=== PATIENT | male | born 1995 | race Caucasian/White ===

== ENCOUNTER → 2019-11-02 09:18 | Outpatient (BNVA) | payer MEDICARE, MEDICAID, SELFPAY | PROVIDERS: Family Provider Nurse Practitioner; PCP Nurse Practitioner; Visit Provider Nurse Practitioner | DX: Z79.899 Other long term (current) drug therapy (principal) | CPT/HCPCS: 80164 ==

== ENCOUNTER → 2020-04-18 15:20 | Outpatient (BNVA) | payer MEDICARE, MEDICAID, SELFPAY | PROVIDERS: Family Provider Nurse Practitioner; PCP Nurse Practitioner; Visit Provider Nurse Practitioner | DX: F43.10 Post-traumatic stress disorder, unspecified (principal) | CPT/HCPCS: 80053; 80164; 85025 ==

== ENCOUNTER → 2020-05-31 15:30 | Outpatient (BNVA) | payer MEDICARE, MEDICAID, SELFPAY | PROVIDERS: Family Provider Nurse Practitioner; PCP Nurse Practitioner; Visit Provider Psychiatry & Neurology Psychiatry | DX: Z51.81 Encounter for therapeutic drug level monitoring (principal); Z79.899 Other long term (current) drug therapy | CPT/HCPCS: 80164 ==

== ENCOUNTER → 2020-09-01 15:30 | Outpatient (BNVA) | payer MEDICARE, SELFPAY | PROVIDERS: Family Provider Nurse Practitioner; PCP Nurse Practitioner; Visit Provider Nurse Practitioner Family | DX: J30.1 Allergic rhinitis due to pollen (principal); Z00.00 Encounter for general adult medical examination without abnormal findings; Z76.0 Encounter for issue of repeat prescription | CPT/HCPCS: 80053; 81000; 85025 ==

== ENCOUNTER 2021-03-14 14:29 | Emergency (ER) | payer MEDICARE, MEDICAID, SELFPAY ==
[2021-03-14] VITALS (8 sets, daily range): BP systolic 112–145; BP diastolic 83–102; PULSE 78–120; RESP 16–22; TEMP 36.4; O2SAT 100; BMI 21.7
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
--- NOTE | 2021-03-14 14:47 | ECG_ITS ---
[facility] Test Date: 2021-03-14 Pat Name: Cullen Devlin Department: Room: Gender: Male Clinic Manager: : 1995 Requested By: Emmanuel Ding Order Number: [id number] Allison MD: Carol Delarosa M.D. Measurements Intervals Chapman Rate: 100 P: 64 VA: 151 QRS: 58 QRSD: 103 T: 39 QT: 343 QTc: 443 Interpretive Statements SINUS TACHYCARDIA POSSIBLE LEFT ATRIAL ENLARGEMENT [-0.1mV P-WAVE IN V1/V2] POSSIBLE RIGHT VENTRICULAR CONDUCTION DELAY [RSR (QR) IN V1/V2] ABNORMAL RHYTHM ECG No previous ECG available for comparison Electronically Signed On 03-15-2021 23:21:04 CDT by Carol Delarosa M.D. [id number]
[2021-03-14 15:03] LABS: ABG PCO2 27.5 mmHg (35-45); ABG PH Result 7.54 (7.35-7.45); Arterial Blood Gas Hematocrit 53.6 % (42-52); Base Excess ABG 2.4 mmol/L (-2.0-2.0); Blood Gas Allen Test Pos; Blood Gas Operator Identificat CAK; Blood Gas Sample Site Radial, right; Blood Gas Sample Type Arterial; HCO3 ABG 23.4 mmol/L (22-26); Oxygen Device NRB
[2021-03-14 15:05] LABS: Basophils % 0.4 %; Eosinophils % 0.2 %; Hematocrit 50.2 % (42.0-52.0); Hemoglobin 17.7 g/dL (11.7-16.6); Lymphocytes # 1.5 10^3/uL (0.8-4.8); Lymphocytes % 18.2 %; Mean Corpuscular HGB Conc 35.3 g/dL (30.0-36.0); Mean Corpuscular Hemoglobin 30.3 pg (28.0-34.0); Mean Corpuscular Volume 85.8 fl (80-94); Mean Platelet Volume 10.5 fL (7.4-10.4); Monocytes # 0.4 10^3/uL (0.2-0.9); Monocytes % 5.3 %; Neutrophils # 6.22 10^3/uL (1.8-7.7); Neutrophils % 75.7 %; Nucleated Red Blood Cells % 0 %; Platelet Count 164 10^3/cmm (130-400); Red Blood Count 5.85 10^6/uL (4.1-5.3); Red Cell Distribution Width 11.1 % (12.1-15.1); White Blood Count 8.2 10^3/uL (4.0-10.0)
[2021-03-14] MEDS: sodium chlor 0.9% + KCl 20 mEq 20 MEQ/1,000 ML BAG 125 MEQ IV (15:08)
[2021-03-14] MEDS: ketorolac 30 mg/mL INJ IVP (15:11)
[2021-03-14] MEDS: tetanus-dipt-pertussis 0.5 mL SDV IM (15:12)
[2021-03-14] MEDS: morphine 4 mg/mL SDV 1 mL IVP (15:20)
[2021-03-14] MEDS: succinylcholine 20 mg/mL SDV 10mL IVP (15:24)
[2021-03-14] MEDS: ondansetron 2 mg/ML SDV 2 mL 4 MG IVP (15:25)
[2021-03-14] MEDS: propofol 1,000 MG/100 ML INJ 17.42 MG IV (15:25)
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
[2021-03-14 15:40] LABS: Alanine Aminotransferase 12 U/L (0-41); Albumin Level 5.1 g/dL (3.5-5.2); Alkaline Phosphatase 79 IU/L (40-130); Anion Gap 19.3 (5-19); Aspartate Amino Transferase 17 U/L (0-40); Blood Urea Nitrogen 13 mg/dL (6-20); Calcium 10.6 mg/dL (8.5-10.5); Carbon Dioxide 21 mmol/L (22-29); Chloride 106 mmol/L (98-107); Creatine Phosphokinase 128 U/L (39-308); Globulin 2.4 g/dL (1.3-4.6); Glomerular Filtration Rate 80.9 mL/min (90-130); Glucose 100 mg/dL (65-115); Osmolality Calculated 294 mOsm/kg (285-295); Potassium 4.3 mmol/L (3.5-5.1); Sodium 142 mmol/L (136-145); Total Bilirubin 0.6 mg/dL (0.15-1.2); Total Protein 7.5 g/dL (6.6-8.7)
[2021-03-14 16:30] LABS: Add Urine Microscopic? YES; Bilirubin Urine Neg (Negative); Blood Urine Neg (Negative); Glucose Urine UA Norm (Normal); Ketones Urine Negative (Negative); Leukocyte Esterase Urine Negative (Negative); Nitrate Urine Negative (Negative); Protein Urine Trace (Negative); Urine Appearance Clear (CLEAR); Urine Color Yellow (Yellow); Urobilinogen Urine Norm (Negative); pH Urine 6 (5-7)
[2021-03-14 16:33] LABS: Add Urine Culture? No; Bacteria Urine 1+ /hpf; RBC Urine RARE /hpf (0-2); Sperm Urine 1+ /hpf; WBC Urine RARE /hpf (0-5)
== END 2021-03-14 16:57 ==
PROVIDERS: Emergency Provider Family Medicine; PCP Nurse Practitioner
DX: T20.25XA Burn of second degree of scalp [any part], initial encounter (principal); T20.29XA Burn of second degree of multiple sites of head, face, and neck, initial encounter; T20.27XA Burn of second degree of neck, initial encounter; T20.24XA Burn of second degree of nose (septum), initial encounter; W40.8XXA Explosion of other specified explosive materials, initial encounter; T59.811A Toxic effect of smoke, accidental (unintentional), initial encounter; Z23 Encounter for immunization
CPT/HCPCS: 31500; 36600; 51702; 71045; 80053; 81001; 82550; 82803; 85025; 90471; 90715; 93005; 94002; 94799; 96365; 96375; 99291; J0330; J1885; J2270; J2405; J2704; J3490

== ENCOUNTER → 2021-04-07 10:21 | Outpatient (BNVA) | payer MEDICARE, MEDICAID, SELFPAY | PROVIDERS: PCP Nurse Practitioner; Visit Provider Psychiatry & Neurology Psychiatry | DX: F06.30 Mood disorder due to known physiological condition, unspecified (principal) | CPT/HCPCS: 80053; 80164; 85025 ==

== ENCOUNTER → 2021-09-14 08:31 | Outpatient (BNVA) | payer MEDICARE, MEDICAID, SELFPAY | PROVIDERS: PCP Nurse Practitioner; Visit Provider Psychiatry & Neurology Psychiatry | DX: F06.30 Mood disorder due to known physiological condition, unspecified (principal); Z79.899 Other long term (current) drug therapy | CPT/HCPCS: 80053; 80061; 80164; 85025 ==

== ENCOUNTER → 2022-03-21 08:31 | Outpatient (BNVA) | payer MEDICARE, MEDICAID, SELFPAY | PROVIDERS: PCP Nurse Practitioner; Visit Provider Psychiatry & Neurology Psychiatry | DX: F43.10 Post-traumatic stress disorder, unspecified (principal); F06.30 Mood disorder due to known physiological condition, unspecified | CPT/HCPCS: 80164 ==

== ENCOUNTER → 2022-04-29 11:16 | Outpatient (BNVA) | payer MEDICARE, MEDICAID, SELFPAY | PROVIDERS: PCP Nurse Practitioner; Visit Provider Family Medicine | DX: S69.92XA Unspecified injury of left wrist, hand and finger(s), initial encounter (principal); X58.XXXA Exposure to other specified factors, initial encounter | CPT/HCPCS: 73130 ==

== ENCOUNTER → 2022-09-20 09:52 | Outpatient (BNVA) | payer MEDICARE, MEDICAID, SELFPAY | PROVIDERS: PCP Nurse Practitioner; Visit Provider Nurse Practitioner | DX: F06.30 Mood disorder due to known physiological condition, unspecified (principal); Z79.899 Other long term (current) drug therapy; J30.1 Allergic rhinitis due to pollen; Z76.0 Encounter for issue of repeat prescription | CPT/HCPCS: 80053; 80061; 80164; 85025 ==

== ENCOUNTER → 2023-03-15 08:29 | Outpatient (BNVA) | payer MEDICARE, MEDICAID, SELFPAY | PROVIDERS: PCP Nurse Practitioner; Visit Provider Psychiatry & Neurology Psychiatry | DX: Z79.899 Other long term (current) drug therapy (principal) | CPT/HCPCS: 80164 ==

== ENCOUNTER 2023-06-05 18:28 | Emergency (ER) | payer MEDICARE, MEDICAID, SELFPAY ==
[2023-06-05 18:47] VITALS: BP 130/85; PULSE 67; RESP 17; TEMP 36.4; O2SAT 98; BMI 21.9
[2023-06-05 19:06] VITALS: BP 135/84; PULSE 84; RESP 16; O2SAT 100
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
[2023-06-05 19:14] VITALS: BP 135/84; PULSE 84; RESP 16; O2SAT 100
== END 2023-06-05 19:15 | disposition home or self-care (01) ==
PROVIDERS: Emergency Provider Emergency Medicine; PCP Nurse Practitioner
DX: S00.81XA Abrasion of other part of head, initial encounter (principal); Y04.2XXA Assault by strike against or bumped into by another person, initial encounter
CPT/HCPCS: 99281

== ENCOUNTER → 2023-09-05 08:26 | Outpatient (BNVA) | payer MEDICARE, MEDICAID, SELFPAY | PROVIDERS: PCP Nurse Practitioner; Visit Provider Nurse Practitioner | DX: Z13.6 Encounter for screening for cardiovascular disorders (principal) | CPT/HCPCS: 80053; 80061; 85025 ==

== ENCOUNTER → 2023-10-03 09:31 | Outpatient (BNVA) | payer MEDICARE, MEDICAID, SELFPAY | PROVIDERS: PCP Nurse Practitioner; Visit Provider Psychiatry & Neurology Psychiatry | DX: F06.30 Mood disorder due to known physiological condition, unspecified (principal); F90.0 Attention-deficit hyperactivity disorder, predominantly inattentive type; Z79.899 Other long term (current) drug therapy | CPT/HCPCS: 80053; 80061; 80164; 85025 ==